=== PATIENT | female | born 1950 | race Caucasian/White ===

== ENCOUNTER → 2019-09-11 | Outpatient (CLI) | payer BC, OTHER ==
[2019-09-16 06:29] LABS: Stool Occult Bld Immuno 1 Negative (NEGATIVE)
== END | disposition home or self-care (01) ==
LOC: LAB 16:03 → LAB SHORT 16:03
PROVIDERS: Family Medicine
DX: Z12.11 Encounter for screening for malignant neoplasm of colon (principal)
CPT/HCPCS: G0328

== ENCOUNTER 2021-01-17 08:56 | Inpatient (IN) | payer MEDICARE, OTHER ==
[~2021-01-17] VITALS: Ht 157.5 cm; Wt 87.6 kg
[2021-01-17] MEDS ORDERED: LOSA25 PO (09:25)
[2021-01-17] MEDS ORDERED: METF500 PO (09:25)
[2021-01-17] MEDS ORDERED: OMEP20ER PO (09:26)
[2021-01-17] MEDS ORDERED: VENL150ER PO (09:26)
[2021-01-17] MEDS ORDERED: Flonase 0.05% N16 GM (09:27)
[2021-01-17] MEDS ORDERED: FENO145 PO (09:27)
[2021-01-17] MEDS ORDERED: ALDACTAZIDE 251 EACH PO (09:27)
[2021-01-17] MEDS ORDERED: ATOR20 PO (09:28)
[2021-01-17] MEDS ORDERED: VICTOZA 2-0.6 MG/0.1 SC (09:28)
[2021-01-17 09:32] LABS: BASOPHILS ABSOLUTE AUTO 0.07 K/mm3 (0.00-0.23); BASOPHILS PERCENT AUTO 1 % (0-2); EOSINOPHILS ABSOLUTE AUTO 0.13 K/mm3 (0.00-0.68); EOSINOPHILS PERCENT AUTO 1 % (0-6); Hematocrit 42.2 % (33.0-51.0); Hemoglobin 13.5 g/dL (11.5-16.0); IMMATURE GRAN ABSOLUTE AUTO 0.11 K/mm3 (0.00-0.10); IMMATURE GRAN PERCENT AUTO 1 % (0-1); LYMPHOCYTES ABSOLUTE AUTO 3.18 K/mm3 (0.84-5.20); LYMPHOCYTES PERCENT AUTO 21 % (21-46); MONOCYTES ABSOLUTE AUTO 1.31 K/mm3 (0.16-1.47); MONOCYTES PERCENT AUTO 9 % (4-13); Mean Corpuscular HGB 26.1 pg (26.0-34.0); Mean Corpuscular Volume 82 fL (80-100); Mean Platelet Volume 9.8 fL (9.1-12.4); NEUTROPHILS ABSOLUTE AUTO 10.64 K/mm3 (1.96-9.15); NEUTROPHILS PERCENT AUTO 69 % (41-73); Platelet Count 438 K/mm3 (150-400); RDW Coefficient Variation 13.8 % (11.7-14.2); RDW Standard Deviation 40.5 fL (35.1-46.3); Red Blood Cell Count 5.18 M/mm3 (3.80-5.20); White Blood Cell Count 15.44 K/mm3 (4.00-11.30)
[2021-01-17 09:50] LABS: Alanine Aminotransfer (ALT/SGP 22 U/L (12-78); Albumin, Blood 3.4 g/dL (3.4-5.0); Albumin/Globulin Ratio 0.7 (0.8-1.8); Alk Phos 69 U/L (50-136); Anion Gap 10 mmol/L (6-16); Aspartate Aminotrans (AST/SGOT 16 U/L (12-37); Bilirubin, Total 0.5 mg/dL (0.1-1.0); Blood Urea Nitrogen 16 mg/dL (8-24); Bun/Creatinine Ratio 16.9 (12.0-20.0); CO2, Blood 23 mmol/L (21-32); Calcium, Blood 9.5 mg/dL (8.5-10.1); Chloride, Blood 102 mmol/L (98-108); Creatinine, Blood 0.94 mg/dL (0.40-1.00); Globulin, Blood 4.7 g/dL (2.2-4.0); Glomerular Filtration Rate >60 (60-); Glucose, Blood 248 mg/dL (70-99); Potassium, Blood 3.8 mmol/L (3.5-5.5); Sodium, Blood 135 mmol/L (136-145); Total Protein, Blood 8.1 g/dL (6.4-8.2); Troponin I 0.148 ng/mL (0.000-0.040)
[2021-01-17 10:01] LABS: Base Excess Venous -0.1 mmol/L; Bicarbonate Venous 24.2 mmol/L (24.0-30.0); PCO2 Venous 38.8 mmHg (38-42); pH Blood Venous 7.41 (7.34-7.37)
[2021-01-17 10:39] LABS: International Normalized Ratio 1.17; Prothrombin Time Results 12.5 Sec (9.7-11.5)
[2021-01-17 12:01] LABS: Adenovirus Not Detected (NOT DETECT); Bordetella pertussis Not Detected (NOT DETECT); Chlamydophila pneumoniae Not Detected (NOT DETECT); Coronavirus 229E Not Detected (NOT DETECT); Coronavirus HKU1 Not Detected (NOT DETECT); Coronavirus NL63 Not Detected (NOT DETECT); Coronavirus OC43 Not Detected (NOT DETECT); Human Metapneumovirus Not Detected (NOT DETECT); Human Rhinovirus/Enterovirus Not Detected (NOT DETECT); Influenza A/2009-H1 Not Detected (NOT DETECT); Influenza A/H1 Not Detected (NOT DETECT); Influenza A/H3 Not Detected (NOT DETECT); Influenza B Not Detected (NOT DETECT); Mycoplasma pneumoniae Not Detected (NOT DETECT); Parainfluenza Virus 1 Not Detected (NOT DETECT); Parainfluenza Virus 2 Not Detected (NOT DETECT); Parainfluenza Virus 3 Not Detected (NOT DETECT); Parainfluenza Virus 4 Not Detected (NOT DETECT); Respiratory Syncytial Virus Not Detected (NOT DETECT); SARS-Cov-2 (COVID-19), BioFire Not Detected (NOT DETECT)
[2021-01-17] MEDS ORDERED: FLUO10 PO (13:10)
[2021-01-17] MEDS ORDERED: LOSA50 PO (13:10)
[2021-01-17] MEDS ORDERED: SPIRONOLACTONE1 EACH PO (13:11)
[2021-01-17] MEDS ORDERED: Fenofibrate200 MG PO (13:12)
[2021-01-17] MEDS ORDERED: METFORMIN HCL1000 M7 PO (13:12)
[2021-01-17] MEDS ORDERED: METFORMIN HCL1000 M2 PO (13:15)
[2021-01-17] MEDS ORDERED: SPIR25 PO (13:48)
[2021-01-17] MEDS ORDERED: HYDCHL25 PO (13:49)
--- NOTE | 2021-01-17 16:37 | NUR ---
Echocardiogram completed.
--- NOTE | 2021-01-17 19:27 | NUR ---
PT TO ICU 15 FROM ER AT 1740 ALERT AND ORIENTED X4, PLEASANT AND COOPERATVE. VSS, HR 90'S SINUS WITH PVC'S. PT ON AIRVO 35L FIO2 50%, SPO2 MID 90'S, REPORTS MILD SOB AT THIS TIME, ABLE TO SPEAK IN FULL SENTENCES. PT REPORTS OCCASIONAL COUGH WITH YELLOW SPUTUM PRODUCTION, LS CLEAR, DIM IN BASES, RR 18-24. PT DENIES CHEST PAIN, REPORTS INTERMITTENT MILD CHEST PRESSURE, NONE AT THIS TIME. HEPARIN INFUSING AT 13U PER ORDERS, NS AT 75ML/HR. DR. SUTHERLAND IN TO SPEAK WITH PATIENT, PLAN TO TAKE PT FOR IR TOMORROW MORNING. PT GIVEN SNACK AND WATER, PLAN FOR NPO AT MIDNIGHT. PT'S AWARE OF PLAN.
[2021-01-18 05:05] LABS: BASOPHILS ABSOLUTE AUTO 0.06 K/mm3 (0.00-0.23); BASOPHILS PERCENT AUTO 1 % (0-2); EOSINOPHILS ABSOLUTE AUTO 0.31 K/mm3 (0.00-0.68); EOSINOPHILS PERCENT AUTO 3 % (0-6); Hematocrit 36.1 % (33.0-51.0); Hemoglobin 11.3 g/dL (11.5-16.0); IMMATURE GRAN ABSOLUTE AUTO 0.06 K/mm3 (0.00-0.10); IMMATURE GRAN PERCENT AUTO 1 % (0-1); LYMPHOCYTES PERCENT AUTO 24 % (21-46); MONOCYTES ABSOLUTE AUTO 1.15 K/mm3 (0.16-1.47); MONOCYTES PERCENT AUTO 10 % (4-13); Mean Corpuscular HGB 25.7 pg (26.0-34.0); Mean Corpuscular HGB Conc 31.3 g/dL (31.5-36.5); Mean Corpuscular Volume 82 fL (80-100); Mean Platelet Volume 9.7 fL (9.1-12.4); NEUTROPHILS ABSOLUTE AUTO 7.21 K/mm3 (1.96-9.15); NEUTROPHILS PERCENT AUTO 62 % (41-73); Platelet Count 346 K/mm3 (150-400); RDW Coefficient Variation 13.9 % (11.7-14.2); RDW Standard Deviation 41.3 fL (35.1-46.3); Red Blood Cell Count 4.39 M/mm3 (3.80-5.20); White Blood Cell Count 11.59 K/mm3 (4.00-11.30)
[2021-01-18 05:31] LABS: Alanine Aminotransfer (ALT/SGP 18 U/L (12-78); Albumin, Blood 2.8 g/dL (3.4-5.0); Albumin/Globulin Ratio 0.7 (0.8-1.8); Alk Phos 51 U/L (50-136); Anion Gap 8 mmol/L (6-16); Aspartate Aminotrans (AST/SGOT 16 U/L (12-37); Bilirubin, Total 0.4 mg/dL (0.1-1.0); Blood Urea Nitrogen 19 mg/dL (8-24); Bun/Creatinine Ratio 23.8 (12.0-20.0); CO2, Blood 27 mmol/L (21-32); Calcium, Blood 8.5 mg/dL (8.5-10.1); Chloride, Blood 103 mmol/L (98-108); Globulin, Blood 3.9 g/dL (2.2-4.0); Glomerular Filtration Rate >60 (60-); Glucose, Blood 181 mg/dL (70-99); Magnesium, Blood 1.7 mg/dL (1.6-2.4); Potassium, Blood 3.6 mmol/L (3.5-5.5); Sodium, Blood 138 mmol/L (136-145); Total Protein, Blood 6.7 g/dL (6.4-8.2)
[2021-01-18 05:51] LABS: PCO2 Arterial 36.9 mmHg (35-45); PO2 Arterial 67.6 mmHg (80-100); pH Blood Arterial 7.44 (7.35-7.45)
--- NOTE | 2021-01-18 06:30 | NUR ---
END OF SHIFT SUMMARY: PATIENT VERY PLEASANT AND IS A/O X4. PATIENT SLEPT TONIGHT AND NO C/O CHEST PAIN OR SOB EXCEPT WITH EXERTION. PATIENT VITALS HAVE REMAINED WNL. RESP STATUS SLOWLY IMPROVING. PATIENT PLACED ON 4L HIFLO THIS MORNING. PATIENT NPO SINCE MIDNIGHT. HEPARIN ADJUSTED APPROPRIATELY THROUGHOUT SHIFT
--- NOTE | 2021-01-18 08:25 | NUR ---
AM NOTE... ASSUMED CARE OF PT AT 0700. PT IS A&Ox4 AND ON BEDREST FOR DVT IN HER LEFT PERONEAL VEIN PER DOPPLER ULTRA SOUND. PT NPO FOR POSSIBLE PROCEDURE WITH DR. SUTHERLAND FOR THE DVT AND PEs. PT'S VS STABLE AT THIS TIME. L/S CLEAR IN THE UPPER LOBES WITH COARSENESS IN THE BILATERAL LOWER LOBES. PT IS ON 4L NC WITH O2 SATS 92-95%, PT BECOMES DYSPNIC WHEN TALKING ON THE PHONE FOR AN EXTENDED TIME WITH HER . PT C/O OF "TIGHTNESS" IN THE CENTER OF HER CHEST BUT DENIES ANY PAIN. PT IS IN NSR IN THE 70'S-80'S. BT PRESENT AND HYPOACTIVE, ABD IS SOFT AND NONTENDER TO PALP. NO SWELLING OR EDEMA NOTED ON ASSESSMENT. ALL PULSES PALPABLE ON ASSESSMENT. CALL LIGHT IN REACH WILL CONTINUE TO MONITOR.
--- NOTE | 2021-01-18 20:14 | NUR ---
FLOWSTASIS DEVICE REMOVED. LAYING FLAT, NO HEMATOMA SEEN. WILL CONTINUE TO MONITOR
--- NOTE | 2021-01-18 21:00 | NUR ---
SPOKE WITH PHARMACY, TOLD TO KEEP HEPARIN DRIP AT CURRENT RATE OF 19 SINCE SHE GOT A HEPARIN BOLUS ALREADY ONCE IN IR. WILL CONTINUE TO MONITOR APTT RESULTS. NEXT APTT TO BE ORDERED BY PHARMACY.
--- NOTE | 2021-01-18 21:16 | NUR ---
PATIENT OUT OF BED TO USE BEDSIDE COMMODE, NO ISSUES WITH STANDING OR FEELINGS OF DIZINNESS. MINOR BLEEDING ON GAUZE AT R FEM SITE. PATIENT BACK TO BED. NO HEMATOMA
[2021-01-19 05:23] LABS: BASOPHILS ABSOLUTE AUTO 0.04 K/mm3 (0.00-0.23); BASOPHILS PERCENT AUTO 0 % (0-2); EOSINOPHILS ABSOLUTE AUTO 0.39 K/mm3 (0.00-0.68); EOSINOPHILS PERCENT AUTO 4 % (0-6); Hematocrit 31.9 % (33.0-51.0); IMMATURE GRAN ABSOLUTE AUTO 0.04 K/mm3 (0.00-0.10); IMMATURE GRAN PERCENT AUTO 0 % (0-1); LYMPHOCYTES ABSOLUTE AUTO 2.53 K/mm3 (0.84-5.20); LYMPHOCYTES PERCENT AUTO 24 % (21-46); MONOCYTES ABSOLUTE AUTO 1.06 K/mm3 (0.16-1.47); MONOCYTES PERCENT AUTO 10 % (4-13); Mean Corpuscular HGB 26.1 pg (26.0-34.0); Mean Corpuscular HGB Conc 31.3 g/dL (31.5-36.5); Mean Corpuscular Volume 83 fL (80-100); Mean Platelet Volume 9.8 fL (9.1-12.4); NEUTROPHILS PERCENT AUTO 62 % (41-73); Platelet Count 325 K/mm3 (150-400); RDW Standard Deviation 41.5 fL (35.1-46.3); Red Blood Cell Count 3.83 M/mm3 (3.80-5.20); White Blood Cell Count 10.56 K/mm3 (4.00-11.30)
[2021-01-19 05:42] LABS: Anion Gap 4 mmol/L (6-16); Blood Urea Nitrogen 16 mg/dL (8-24); Bun/Creatinine Ratio 20.4 (12.0-20.0); CO2, Blood 28 mmol/L (21-32); Calcium, Blood 8.9 mg/dL (8.5-10.1); Chloride, Blood 107 mmol/L (98-108); Creatinine, Blood 0.79 mg/dL (0.40-1.00); Glomerular Filtration Rate >60 (60-); Glucose, Blood 165 mg/dL (70-99); Potassium, Blood 3.9 mmol/L (3.5-5.5); Sodium, Blood 139 mmol/L (136-145)
--- NOTE | 2021-01-19 09:07 | NUR ---
MORNING UPDATE PT CONTINUES TO NEED 1L O2 VIA NC. PT WAS VISTED BY DR. Mack DURAN AND Stacey JOVEL. PT IS CURRENTLY STILL ON HEPARIN GTT AWAITING TO BE DC'D BY ENA AND ORAL THINNER TO BE STARTED. PT IS TO COMPLETE A HOME O2 STUDY WITH RT.
--- NOTE | 2021-01-19 10:30 | NUR ---
FEMORAL SITE PT HAS FEMORAL OP SITE THAT WAS REDRESSED THIS MORNING WITH CHG TEGADERM. THE PREVIOUS DRESSING HAD SCANT AMOUNT OF DRAINAGE AND WAS COMING OFF. NO NEW DRAINAGE, NO SIGN OF HEMATOMA, SITE IS SOFT NON TENDER
--- NOTE | 2021-01-19 10:54 | NUR ---
HOME O2 STUDY PT COMPLETED HER HOME O2 EVAUATION WITH RT, NED. PT MAINTAINS SATURATION AT 92% AND ABOVE ON RA AT REST BUT NEEDS 2L WITH ACTIVITY. DISCHARGE PLANNING HAS BEEN MADE AWARE, THE HOME O2 STUDY IS GOOD FOR 48HR.
[2021-01-19] MEDS ORDERED: XARELTO20 MG PO (12:19)
--- NOTE | 2021-01-19 13:08 | NUR ---
DISCHARGE PT IS TO BE DISCHARGED TODAY. PT'S FEMORAL IR OP SITE IS C/D/I WITH TEGADERM IN PLACE. IT IS NON TENDER, NO SIGN OF HEMATOMA. PT IS LEAVING WITH HOME 02 ORDERS AND IS TO HAVE OUTPATIENT PHYSICAL THERAPY REFERALL. PT HAS RECEIVED EDUCATION ON USE OF XARELTO. PT DISCHARGED ACCOMPANIED WITH SPOUSE AT APPROXIMATELY 1315.
== END 2021-01-19 13:20 | disposition home or self-care (01) | DRG 163 ==
LOC: ER 08:56 → ICUW 13:42
PROVIDERS: Emergency Medicine; Family Medicine; Nurse Practitioner Acute Care; ADMIT Internal Medicine
PROC: 3E06317 Introduction of Other Thrombolytic into Central Artery, Percutaneous Approach (ICD-10-PCS; principal; 2021-01-18)
PROC: 02CQ3ZZ Extirpation of Matter from Right Pulmonary Artery, Percutaneous Approach (ICD-10-PCS; 2021-01-18)
DX: I26.99 Other pulmonary embolism without acute cor pulmonale (principal); J96.01 Acute respiratory failure with hypoxia; I82.452 Acute embolism and thrombosis of left peroneal vein; Z20.822 Contact with and (suspected) exposure to COVID-19; E11.9 Type 2 diabetes mellitus without complications; I10 Essential (primary) hypertension; I51.89 Other ill-defined heart diseases; K21.9 Gastro-esophageal reflux disease without esophagitis; E78.5 Hyperlipidemia, unspecified; D35.02 Benign neoplasm of left adrenal gland; E66.01 Morbid (severe) obesity due to excess calories; Z68.35 Body mass index [BMI] 35.0-35.9, adult; Z87.891 Personal history of nicotine dependence; Z79.899 Other long term (current) drug therapy; Z79.84 Long term (current) use of oral hypoglycemic drugs; Z98.84 Bariatric surgery status
CPT/HCPCS: 0202U; 36014; 36015; 36415; 36600; 37184; 37185; 71045; 71260; 75743; 75820; 75825; 76937; 80048; 80053; 82803; 82947; 83605; 83735; 83880; 84145; 84484; 85025; 85379; 85610; 85730; 87040; 93005; 93010; 93306; 93970; 94761; 96365-59; 96366-59; 96368; 97161; 97530; 99152; 99153; 99285-25; A9270; C1769; C1894; J0456; J0696; J1644; J2250; J2997; J3010; J7030; J7040; J7050; Q9967

== ENCOUNTER 2021-11-01 15:27 | Observation (INO) | payer OTHER ==
[~2021-11-01] VITALS: Ht 154.9 cm; Wt 90.4 kg
[~2021-11-01 15:27] MED LIST: ALDACTAZIDE 251 EACH PO; ATOR20 PO; FENO145 PO; FLUO10 PO; Fenofibrate200 MG PO; Flonase 0.05% N16 GM; HYDCHL25 PO; LOSA25 PO; LOSA50 PO; METF500 PO; METFORMIN HCL1000 M2 PO; METFORMIN HCL1000 M7 PO; OMEP20ER PO; SPIR25 PO; SPIRONOLACTONE1 EACH PO; VENL150ER PO; VICTOZA 2-0.6 MG/0.1 SC; XARELTO20 MG PO
[2021-11-01 16:05] LABS: BASOPHILS ABSOLUTE AUTO 0.07 K/mm3 (0.00-0.23); BASOPHILS PERCENT AUTO 1 % (0-2); EOSINOPHILS ABSOLUTE AUTO 0.28 K/mm3 (0.00-0.68); EOSINOPHILS PERCENT AUTO 3 % (0-6); Hematocrit 28.2 % (33.0-51.0); Hemoglobin 7.6 g/dL (11.5-16.0); IMMATURE GRAN ABSOLUTE AUTO 0.06 K/mm3 (0.00-0.10); IMMATURE GRAN PERCENT AUTO 1 % (0-1); LYMPHOCYTES PERCENT AUTO 21 % (21-46); MONOCYTES ABSOLUTE AUTO 0.87 K/mm3 (0.16-1.47); MONOCYTES PERCENT AUTO 8 % (4-13); Mean Corpuscular HGB 18.4 pg (26.0-34.0); Mean Corpuscular Volume 68 fL (80-100); Mean Platelet Volume 9.4 fL (9.1-12.4); NEUTROPHILS PERCENT AUTO 66 % (41-73); Platelet Count 541 K/mm3 (150-400); RDW Coefficient Variation 17.2 % (11.7-14.2); RDW Standard Deviation 42.5 fL (35.1-46.3); Red Blood Cell Count 4.12 M/mm3 (3.80-5.20); White Blood Cell Count 10.38 K/mm3 (4.00-11.30)
[2021-11-01 16:13] LABS: Alanine Aminotransfer (ALT/SGP 21 U/L (12-78); Albumin, Blood 3.4 g/dL (3.4-5.0); Albumin/Globulin Ratio 0.9 (0.8-1.8); Alk Phos 61 U/L (50-136); Anion Gap 7 mmol/L (6-16); Aspartate Aminotrans (AST/SGOT 14 U/L (12-37); Bilirubin, Total 0.3 mg/dL (0.1-1.0); Blood Urea Nitrogen 15 mg/dL (8-24); Bun/Creatinine Ratio 18.1 (12.0-20.0); CO2, Blood 28 mmol/L (21-32); Calcium, Blood 9.3 mg/dL (8.5-10.1); Chloride, Blood 102 mmol/L (98-108); Creatinine, Blood 0.83 mg/dL (0.40-1.00); Globulin, Blood 3.7 g/dL (2.2-4.0); Glomerular Filtration Rate >60 (60-); Glucose, Blood 164 mg/dL (70-99); Potassium, Blood 3.8 mmol/L (3.5-5.5); Sodium, Blood 137 mmol/L (136-145); Total Protein, Blood 7.1 g/dL (6.4-8.2)
[2021-11-01 16:15] LABS: Calcium, Ionized (POC) 1.25 mmol/L (1.10-1.46); Chloride (POC) 98 mmol/L (98-108); Creatinine (POC) 0.9 mg/dL (0.6-1.0); Glucose (ISTAT POC) 152 mg/dL (70-99); Hemoglobin (POC) 8.8 g/dL (12.0-16.0); Potassium (POC) 3.6 mmol/L (3.5-5.5); Sodium (POC) 136 mmol/L (135-148); Total CO2 (POC) 26 mmol/L (21-32)
[2021-11-01 17:03] LABS: Percent Saturation 2.7 % (15.0-50.0)
[2021-11-01 19:27] LABS: IMMATURE RETIC FRACTION 30.8 % (2.3-16.0); RETIC HGB EQUIVALENT 17.5 pg (28.20-36.60); RETICULOCYTE COUNT PERCENT 2.12 % (0.50-2.50)
--- NOTE | 2021-11-02 05:15 | NUR ---
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 PT IS ALERT AND ORIENTED X4, ON RA SATTING >95%, NOT MONITORED. PT DOES C/O SOB AFTER GETTING UP TO GO TO THE BATHROOM BUT CAN EASILY CATCH HER BREATH WITHOUT THE NEED FOR OXYGEN. PT HAS HX OF IRON DEFF ANEMIA, HGB WAS 7.6/8.8 ORDERS WERE GIVEN TO TRANSFUSE 1 UNIT OF PRBC'S, PT TOLERATED WELL WITH NO ADVERSE REACTIONS. PT DOES NOT C/O CP, N/V, OR SOB AT THIS TIME. PT IS NPO FOR POSSIBLE ANGIOGRAM TODAY.
[2021-11-02 07:43] LABS: BASOPHILS ABSOLUTE AUTO 0.06 K/mm3 (0.00-0.23); BASOPHILS PERCENT AUTO 1 % (0-2); EOSINOPHILS ABSOLUTE AUTO 0.37 K/mm3 (0.00-0.68); EOSINOPHILS PERCENT AUTO 4 % (0-6); Hematocrit 30.1 % (33.0-51.0); Hemoglobin 8.6 g/dL (11.5-16.0); IMMATURE GRAN ABSOLUTE AUTO 0.04 K/mm3 (0.00-0.10); IMMATURE GRAN PERCENT AUTO 0 % (0-1); LYMPHOCYTES PERCENT AUTO 11 % (21-46); MONOCYTES ABSOLUTE AUTO 0.92 K/mm3 (0.16-1.47); MONOCYTES PERCENT AUTO 9 % (4-13); Mean Corpuscular HGB 19.5 pg (26.0-34.0); Mean Corpuscular HGB Conc 28.6 g/dL (31.5-36.5); Mean Corpuscular Volume 68 fL (80-100); NEUTROPHILS ABSOLUTE AUTO 7.73 K/mm3 (1.96-9.15); NEUTROPHILS PERCENT AUTO 76 % (41-73); NRBC ABSOLUTE 0.02 K/mm3 (0.00-0.02); NRBC Auto 0.2 /100 WBC (0.0-0.2); Platelet Count 450 K/mm3 (150-400); RDW Coefficient Variation 17.8 % (11.7-14.2); RDW Standard Deviation 43.7 fL (35.1-46.3); Red Blood Cell Count 4.41 M/mm3 (3.80-5.20); White Blood Cell Count 10.22 K/mm3 (4.00-11.30)
[2021-11-02 08:00] LABS: Anion Gap 8 mmol/L (6-16); Blood Urea Nitrogen 15 mg/dL (8-24); Bun/Creatinine Ratio 18.9 (12.0-20.0); CO2, Blood 28 mmol/L (21-32); Calcium, Blood 9.4 mg/dL (8.5-10.1); Chloride, Blood 104 mmol/L (98-108); Creatinine, Blood 0.79 mg/dL (0.40-1.00); Glomerular Filtration Rate >60 (60-); Glucose, Blood 132 mg/dL (70-99); Potassium, Blood 3.5 mmol/L (3.5-5.5); Sodium, Blood 140 mmol/L (136-145)
[2021-11-02 11:11] LABS: Stool Occult Bld Immuno 1 Negative (NEGATIVE)
--- NOTE | 2021-11-02 18:17 | NUR ---
PT AOX4 AND COOPERATIVE OF CARE. PT HAS BEEN NPO TODAY WHILE [facility] AND GI DOCOTOR MADE PLANS FOR PT TREATMENT. HEPRIN WAS STOPPED PER DR OCHOA. PT WAS ABLE TO HAVE CLEAR LIQUID FOR DINNER AND CBGS WERE ADDED Q6 CHECKS. NEW IV WAS PLACE AND PT TOLERATED WELL. PT INDEPENDENT IN ROOM AND CALL LIGHT WITHIN REACH.
[2021-11-02] MEDS ORDERED: PIOG15 PO (18:49)
[2021-11-02] MEDS ORDERED: ATOR20 PO (18:50)
--- NOTE | 2021-11-03 04:48 | NUR ---
PT IS ASLEEP THIS MORNING. PT IS ALERT AND ORIENTED X4, ON RA SATTING >95% WITH NO C/O SOB, TELE MONITORED- NSR. PT DID NOT HAVE A BM LAST NIGHT BUT STATES SHE HASN'T HAD ANY BLOOD IN HER STOOLS. PT TOLERATING CLEAR LIQUID DIET AND IVF TO MAINTAIN BS DUE TO DMT2 HX. OTHERWISE NO ACUTE EVENTS OVERNIGHT, PT IS PLANNED TO BE POSSIBLY SCOPED TODAY WITH GI. PT BELONGINGS AND CALL LIGHT WITHIN REACH.
[2021-11-03 04:55] LABS: Hematocrit 30.5 % (33.0-51.0); Hemoglobin 8.6 g/dL (11.5-16.0); Mean Corpuscular HGB 19.5 pg (26.0-34.0); Mean Corpuscular HGB Conc 28.2 g/dL (31.5-36.5); Mean Corpuscular Volume 69 fL (80-100); Mean Platelet Volume 9.3 fL (9.1-12.4); NRBC ABSOLUTE 0.02 K/mm3 (0.00-0.02); NRBC Auto 0.3 /100 WBC (0.0-0.2); Platelet Count 441 K/mm3 (150-400); RDW Coefficient Variation 18.1 % (11.7-14.2); RDW Standard Deviation 44.8 fL (35.1-46.3); Red Blood Cell Count 4.41 M/mm3 (3.80-5.20); White Blood Cell Count 7.48 K/mm3 (4.00-11.30)
[2021-11-03 05:23] LABS: Anion Gap 8 mmol/L (6-16); Blood Urea Nitrogen 13 mg/dL (8-24); Bun/Creatinine Ratio 16.5 (12.0-20.0); CHOL/HDL RATIO 2.3; CO2, Blood 27 mmol/L (21-32); Calcium, Blood 9.2 mg/dL (8.5-10.1); Chloride, Blood 103 mmol/L (98-108); Cholesterol 97 mg/dL (50-200); Creatinine, Blood 0.79 mg/dL (0.40-1.00); Glomerular Filtration Rate >60 (60-); Glucose, Blood 142 mg/dL (70-99); HDL Cholesterol 42 mg/dL (>39); LDL/HDL RATIO 0.5; Low Density Lipoprotein Chol 22 mg/dL (0-110); Magnesium, Blood 1.6 mg/dL (1.6-2.4); Phosphorus, Blood 3.7 mg/dL (2.5-4.9); Potassium, Blood 3.4 mmol/L (3.5-5.5); Sodium, Blood 138 mmol/L (136-145); Triglycerides 163 mg/dL (30-160); Very Low Density Lipoprot Chol 32 mg/dL (6-32)
[2021-11-03] MEDS ORDERED: PROZAC40 MG PO (15:28)
[2021-11-03] MEDS ORDERED: FLONASE ALLERG9.9 M2 (15:32)
--- NOTE | 2021-11-03 16:58 | NUR ---
End of Shift Summary: Vitals stable this shift, no bloody stools reported. D5/ 1/2 NS infusing continous, 2nd IV placed for Heparin infusion. Orders to stop Heparin gtt tomorrow at 0600, and pt to be NPO after breakfast, EDG/colonscopy planned for tomorrow. Suprep Bowel prep starts tonight at 2000. Will continue to [facility] for s/sx bleeding, and labs. CBGs WNL.
--- NOTE | 2021-11-04 05:15 | NUR ---
SUMMARY: PT A/OX4, INDEPENDENT IN ROOM AND CALLS APPROPRIATELY TO SPECIFY NEEDS. SHE'S ON CLEAR LIQUID DIET AND NPO AFTER BREAKFASST FOR EGD/COLONOSCOPY THIS AM. SUPREP BEING RECIEVED AND STOOL IS YELLOW/GREEN LIQUID AT THIS TIME. HEPARIN GTT INFUSES AT 21 UN/KG/HR (27.3 ML/HR) AND WILL BE STOPPED FOR PROCEDURE AT 0600. NEW 2ND IV PLACED TO R.FA W/IVF INFUSING AT 75 ML/HR. PT ON TELEMETRY IN NSR AT 60'S-70'S BPM. NO ACUTE CHANGES, VSS/AFEBRILE. WCTM AND REPORT TO DAY RN.
[2021-11-04 06:03] LABS: BASOPHILS ABSOLUTE AUTO 0.04 K/mm3 (0.00-0.23); BASOPHILS PERCENT AUTO 1 % (0-2); EOSINOPHILS ABSOLUTE AUTO 0.47 K/mm3 (0.00-0.68); EOSINOPHILS PERCENT AUTO 6 % (0-6); Hematocrit 30.1 % (33.0-51.0); Hemoglobin 8.6 g/dL (11.5-16.0); IMMATURE GRAN ABSOLUTE AUTO 0.07 K/mm3 (0.00-0.10); IMMATURE GRAN PERCENT AUTO 1 % (0-1); LYMPHOCYTES ABSOLUTE AUTO 2.12 K/mm3 (0.84-5.20); LYMPHOCYTES PERCENT AUTO 27 % (21-46); MONOCYTES ABSOLUTE AUTO 0.91 K/mm3 (0.16-1.47); MONOCYTES PERCENT AUTO 12 % (4-13); Mean Corpuscular HGB 19.8 pg (26.0-34.0); Mean Corpuscular HGB Conc 28.6 g/dL (31.5-36.5); Mean Corpuscular Volume 69 fL (80-100); Mean Platelet Volume 9.1 fL (9.1-12.4); NEUTROPHILS ABSOLUTE AUTO 4.24 K/mm3 (1.96-9.15); NEUTROPHILS PERCENT AUTO 54 % (41-73); Platelet Count 451 K/mm3 (150-400); RDW Coefficient Variation 18.4 % (11.7-14.2); RDW Standard Deviation 45.2 fL (35.1-46.3); Red Blood Cell Count 4.35 M/mm3 (3.80-5.20); White Blood Cell Count 7.85 K/mm3 (4.00-11.30)
--- NOTE | 2021-11-04 06:04 | NUR ---
HEPARIN GTT STOPPED FOR AM PROCEDURE PER ORDERS.
[2021-11-04 06:17] LABS: Alanine Aminotransfer (ALT/SGP 18 U/L (12-78); Albumin, Blood 3.2 g/dL (3.4-5.0); Albumin/Globulin Ratio 0.9 (0.8-1.8); Alk Phos 47 U/L (50-136); Anion Gap 9 mmol/L (6-16); Aspartate Aminotrans (AST/SGOT 17 U/L (12-37); Bilirubin, Total 0.5 mg/dL (0.1-1.0); Blood Urea Nitrogen 9 mg/dL (8-24); Bun/Creatinine Ratio 11.9 (12.0-20.0); CO2, Blood 24 mmol/L (21-32); Chloride, Blood 107 mmol/L (98-108); Creatinine, Blood 0.75 mg/dL (0.40-1.00); Globulin, Blood 3.6 g/dL (2.2-4.0); Glomerular Filtration Rate >60 (60-); Glucose, Blood 134 mg/dL (70-99); Magnesium, Blood 1.7 mg/dL (1.6-2.4); Phosphorus, Blood 2.8 mg/dL (2.5-4.9); Potassium, Blood 3.2 mmol/L (3.5-5.5); Sodium, Blood 140 mmol/L (136-145); Total Protein, Blood 6.8 g/dL (6.4-8.2)
--- NOTE | 2021-11-04 14:33 | NUR ---
11/04/21 1433 Jessica Ramos History, Chart, Medications and Allergies reviewed before start of procedure.MONITOR INTACT WITH CONTINUOUS PULSE OXIMETRY, 3LEAD AND INTERMITTENT BP.O2 VIA N/C INTACT THROUGHOUT SEDATION/PROCEDURE. See Anesthesia record
--- NOTE | 2021-11-04 18:04 | NUR ---
END OF SHIFT SUMMARY: Pt NPO after breakfast, multiple yellow water stools this am. Pt left Medical at 1345, and returned at 1545. Vitals stable, pt tolerating oral intake. Pt refused PO Bisacodyl today. stated that pt staying over night, and will go to [employer] tomorrow. Pt resting comfortably in bed, no other concerns at this time.
[2021-11-05 04:46] LABS: Hematocrit 29.4 % (33.0-51.0); Hemoglobin 8.2 g/dL (11.5-16.0); Mean Corpuscular HGB 19.7 pg (26.0-34.0); Mean Corpuscular HGB Conc 27.9 g/dL (31.5-36.5); Mean Corpuscular Volume 71 fL (80-100); Platelet Count 410 K/mm3 (150-400); RDW Standard Deviation 46.4 fL (35.1-46.3); Red Blood Cell Count 4.17 M/mm3 (3.80-5.20); White Blood Cell Count 8.12 K/mm3 (4.00-11.30)
--- NOTE | 2021-11-05 05:15 | NUR ---
SUMMARY NO NEW ISSUES NOTED. PT DENIES DISCOMFORT OR N/V. PT HAS BEEN SLEEPING T/O SHIFT. PT CURRENTLY SLEEPING AND IN NO DISTRESS. CALL LIGHT IN REACH.
[2021-11-05 05:16] LABS: Alanine Aminotransfer (ALT/SGP 18 U/L (12-78); Albumin/Globulin Ratio 0.9 (0.8-1.8); Alk Phos 46 U/L (50-136); Anion Gap 8 mmol/L (6-16); Aspartate Aminotrans (AST/SGOT 15 U/L (12-37); Bilirubin, Total 0.4 mg/dL (0.1-1.0); Blood Urea Nitrogen 13 mg/dL (8-24); Bun/Creatinine Ratio 16.2 (12.0-20.0); CO2, Blood 25 mmol/L (21-32); Calcium, Blood 8.9 mg/dL (8.5-10.1); Chloride, Blood 109 mmol/L (98-108); Ferritin, Serum 6 ng/mL (8-252); Globulin, Blood 3.3 g/dL (2.2-4.0); Glomerular Filtration Rate >60 (60-); Glucose, Blood 133 mg/dL (70-99); Iron Serum 19 ug/dL (50-170); Percent Saturation 4.1 % (15.0-50.0); Potassium, Blood 3.7 mmol/L (3.5-5.5); Sodium, Blood 142 mmol/L (136-145); Total Iron Binding Capacity 469 ug/dL (250-450); Total Protein, Blood 6.3 g/dL (6.4-8.2)
--- NOTE | 2021-11-05 10:26 | NUR ---
07-recvd report from previous shift RN, pt sleeping in bed 0730- pt awakes, a/o x 4, pleasant/cooperative, denies pain, denies n/v 1000-pt's family member here to visit electronic medical record was not updated to show pt needed to be N[facility] for [facility] procedure this AM. Recvd call from [facility] RN notifying this RN pt will have studies/possible intervention today. Pt NPO except for meds and ice chips for the remainder of this shift. Notified nursings staff and updated orders
--- NOTE | 2021-11-05 11:09 | NUR ---
Reviewed pt's chart briefly. Telephone report received from MACI Guthrie. States pt will be leaving for angiogram in [facility] center shortly. Anticipate pt transfer to PCU 3 following.
--- NOTE | 2021-11-05 11:27 | NUR ---
pt transferred via wheelchair to [facility] for procedure.
--- NOTE | 2021-11-05 12:33 | NUR ---
pt in PCU 3; Alert, oriented, pleasantly conversant. Dr. Vu was here, talked to the patient. Right wrist TR band in place, noted no bleeding, no swelling, no hematoma. Pt denies any pain/discomfort. Given lunch food after CBG was verified. Call to to inform her of pt's angio results and Cardiology recommendation for discharge from cardio standpoint.
--- NOTE | 2021-11-05 13:13 | NUR ---
Right radial access site remains without hematoma, bleeding, bruising nor swelling. Pt denies pain/dyspnea/discomfort. White immobilizer board replaced after assessment of site.
--- NOTE | 2021-11-05 13:48 | NUR ---
2 cc air removed from the TR band on the right wrist. No bleeding, no bruising, no swelling, no hematoma. Dr. Jauregui here to talk to the patient.
[2021-11-05] MEDS ORDERED: FERSU300 PO (14:03)
[2021-11-05] MEDS ORDERED: METO25ER PO (14:04)
--- NOTE | 2021-11-05 14:06 | NUR ---
Reviewed pt educational materials for arterial access site and anemia and iron rich diet. Written materials provided for the patient. Removed 2 cc air from TR band; after 2 minutes noted bleeding from the site. Reinflated 2 cc, but still had seeping of blood. 1 cc additionally reinflated, and bleeding stopped. Pt denies discomfort. No hematoma, no bruising noted. Pt elevated wrist on her chest and immobilizer board placed on wrist.
--- NOTE | 2021-11-05 14:39 | NUR ---
Call to Dr. Zamora; states that pt can resume her metformin administration today.
--- NOTE | 2021-11-05 14:40 | NUR ---
2 cc air removed from the TR band. No bleeding, no hematoma, no bruising. Pt denies all discomfort. She is reviewing the pt educational materials provided to her here.
--- NOTE | 2021-11-05 15:04 | NUR ---
2 CC air removed from the TR band. No bleeding. Pt continues to have no pain/discomfort.
--- NOTE | 2021-11-05 15:23 | NUR ---
TR band is fully delated now. Right wrist arterial access site without bleeding, bruising, hematoma or swelling. TR band remains in place and will remove in 1 hour.
== END 2021-11-05 16:40 | disposition home or self-care (01) ==
LOC: ER 15:27 → MEDS 19:02 → PCU 11-05 12:32
PROVIDERS: Emergency Medicine; Family Medicine; Internal Medicine; ADMIT Hospitalist
DX: R06.09 Other forms of dyspnea (principal); R07.89 Other chest pain; D50.9 Iron deficiency anemia, unspecified; E11.9 Type 2 diabetes mellitus without complications; I10 Essential (primary) hypertension; K21.9 Gastro-esophageal reflux disease without esophagitis; E78.00 Pure hypercholesterolemia, unspecified; T44.7X1A Poisoning by beta-adrenoreceptor antagonists, accidental (unintentional), initial encounter; R53.83 Other fatigue; I95.2 Hypotension due to drugs; E66.01 Morbid (severe) obesity due to excess calories; I25.10 Atherosclerotic heart disease of native coronary artery without angina pectoris; E87.6 Hypokalemia; E83.42 Hypomagnesemia; K29.50 Unspecified chronic gastritis without bleeding; D12.0 Benign neoplasm of cecum; K22.89 Other specified disease of esophagus; K57.30 Diverticulosis of large intestine without perforation or abscess without bleeding; K64.8 Other hemorrhoids; K62.89 Other specified diseases of anus and rectum; I34.0 Nonrheumatic mitral (valve) insufficiency; Z79.84 Long term (current) use of oral hypoglycemic drugs; Z79.899 Other long term (current) drug therapy; Z79.01 Long term (current) use of anticoagulants; Z87.891 Personal history of nicotine dependence; Z86.711 Personal history of pulmonary embolism; Z86.718 Personal history of other venous thrombosis and embolism; Z88.8 Allergy status to other drugs, medicaments and biological substances; Z68.37 Body mass index [BMI] 37.0-37.9, adult
CPT/HCPCS: 36415; 36430; 71260; 76937; 80047; 80048; 80053; 80061; 82274; 82728; 82947; 83540; 83550; 83735; 84100; 84484; 85014; 85025; 85027; 85045; 85730; 86850; 86900; 86901; 86923; 88305; 88312; 88342; 93005; 93010; 93306; 93454; 96365; 96372; 96375; 96376; 97161; 97165; 99152; 99153; 99285-25; A9270; C1769; C1894; G0378; J1644; J1650; J2250; J2704; J2916; J3010; J3475; J7030; J7042; J7050; J7120; P9016; Q9967

== ENCOUNTER → 2022-02-10 | Outpatient (CLI) | payer OTHER ==
[~2022-02-10] MED LIST changes: +FERSU300 PO; +FLONASE ALLERG9.9 M2; +METO25ER PO; +PIOG15 PO; +PROZAC40 MG PO
== END ==
LOC: LAB 09:30 → LAB SHORT 09:30
DX: E11.9 Type 2 diabetes mellitus without complications (principal); Z79.4 Long term (current) use of insulin
CPT/HCPCS: 82043

== ENCOUNTER 2023-01-01 08:57 | Emergency (ER) | payer OTHER ==
[~2023-01-01] VITALS: Ht 154.9 cm; Wt 93.0 kg
[2023-01-01 09:27] VITALS: BP 136/60
[2023-01-01 10:57] LABS: Source, Urine Foley catheter
[2023-01-01] MEDS ORDERED: Percocet 5-3251 EACH PO (11:00)
[2023-01-01 11:01] LABS: Bilirubin, Urine Neg (Neg); Blood, Urine Neg (Neg); Glucose Qualitative, Urine Neg (Neg); Ketones, Urine Neg (Neg); Leukocyte Esterase, Urine Neg (Neg); Nitrite, Urine Neg (Neg); Protein, Urine Neg (Neg); Urobilinogen, Urine 1+ (Normal)
[2023-01-01 11:13] LABS: Appearance, Urine Clear (Clear); Color, Urine Yellow (P-Yellow)
== END 2023-01-01 11:15 | disposition home or self-care (01) ==
LOC: ER 08:57
PROVIDERS: Physician Assistant
DX: G89.29 Other chronic pain (principal); M54.50 Low back pain, unspecified; E11.9 Type 2 diabetes mellitus without complications; I10 Essential (primary) hypertension; K21.9 Gastro-esophageal reflux disease without esophagitis; E78.5 Hyperlipidemia, unspecified; Z88.8 Allergy status to other drugs, medicaments and biological substances; Z79.84 Long term (current) use of oral hypoglycemic drugs; Z79.01 Long term (current) use of anticoagulants; Z79.899 Other long term (current) drug therapy; Z87.891 Personal history of nicotine dependence; W18.30XA Fall on same level, unspecified, initial encounter
CPT/HCPCS: 51702; 81003; A9270

== ENCOUNTER → 2023-02-12 | Outpatient (CLI) | payer OTHER ==
[~2023-02-12] MED LIST changes: +Percocet 5-3251 EACH PO
== END ==
LOC: LAB 17:45 → LAB SHORT 17:45
DX: E11.9 Type 2 diabetes mellitus without complications (principal)
CPT/HCPCS: 82043